=== PATIENT | male | born 1970 | race Caucasian/White ===

== ENCOUNTER 2018-04-08 20:01 | Emergency (ER) | payer MEDICARE ==
[2018-04-08 20:08] VITALS: BP 119/79; PULSE 90; RESP 16; TEMP 98.2; O2SAT 97
--- NOTE | 2018-04-08 20:20 | ED PDOC ---
HPI: Trauma/Fall - HPI Time Seen by Provider: 04/08/18 20:09 Chief Complaint (Nursing): Back Pain Chief Complaint (Provider): Back Pain History Per: Patient History/Exam Limitations: no limitations Injury Occurred (Timing): Days Ago: (x2) Additional Complaint(s): 47 year old male arrives to ED for an evaluation of lower back status post fall yesterday. Patient states he was walking backwards then tripped and landed flat on his back. He reports no pain initially but progressively became worse today after getting up from sitting position. He denies any head injury, numbness, tingling, incontinence or radiation of pain. PMD: none provided - Fall Fall:Prior To Injury: Tripped Past Medical History Reviewed: Historical Data, Nursing Documentation, Vital Signs Vital Signs: Last Vital Signs Temp 98.2 F 04/08/18 20:06 Pulse 90 04/08/18 20:06 Resp 16 04/08/18 20:06 BP 119/79 04/08/18 20:06 Pulse Ox 97 04/08/18 20:38 - Medical History PMH: No Chronic Diseases - Surgical History Surgical History: No Surg Hx - Family History Family History: States: Unknown Family Hx - Home Medications Home Medications: Ambulatory Orders Medication Instructions Recorded Naproxen [Naprosyn] 500 mg PO BID PRN #14 tab 04/08/18 - Allergies Allergies/Adverse Reactions: Allergies Allergy/AdvReac Type Severity Reaction Status Date / Time No Known Allergies Allergy Verified 04/08/18 20:05 Review of Systems ROS Statement: Except As Marked, All Systems Reviewed And Found Negative Genitourinary Male: Negative for: Incontinence Musculoskeletal: Positive for: Back Pain (lower) Neurological: Negative for: Numbness (or tingling), Other (head injury) Physical Exam - Reviewed Nursing Documentation Reviewed: Yes Vital Signs Reviewed: Yes - Physical Exam Appears: Positive for: No Acute Distress Skin: Positive for: Normal Color, Warm, Dry Gastrointestinal/Abdominal: Positive for: Normal Exam, Soft. Negative for: Tenderness Back: Positive for: Muscle Spasm (bilateral). Negative for: L CVA Tenderness, R CVA Tenderness, Vertebral Tenderness - ECG O2 Sat by Pulse Oximetry: 97 (RA) Pulse Ox Interpretation: Normal - Radiology X-Ray: Interpreted by Me (LS spine x-ray) X-Ray Interpretation: No Acute Disease Medical Decision Making Medical Decision Making: Initial Impression: Back pain s/p fall injury Initial Plan: * Toradol 30mg IM * Xray LS spine Scribe Attestation: Documented by Sharmin Pace, acting as a scribe for Rogelio Gutiérrez PA-C. Provider Scribe Attestation: All medical record entries made by the Scribe were at my direction and personally dictated by me. I have reviewed the chart and agree that the record accurately reflects my personal performance of the history, physical exam, medical decision making, and the department course for this patient. I have also personally directed, reviewed, and agree with the discharge instructions and disposition. Disposition - Clinical Impression Clinical Impression: Low back pain - Patient ED Disposition Is Patient to be Admitted: No - Disposition Referrals: [facility] [Outside] Disposition: Routine/Home Disposition Time: 20:37 Condition: IMPROVED Additional Instructions: KLAUDIA DANGELO, thank you for letting us take care of you today. Your provider was Brunilda Kaye MD and you were treated for WC: BACK PAIN. The emergency medical care you received today was directed at your acute symptoms. If you were prescribed any medication, please fill it and take as directed. It may take several days for your symptoms to resolve. Return to the Emergency Department if your symptoms worsen, do not improve, or if you have any other problems. Please contact your doctor or call one of the physicians/clinics you have been referred to that are listed on the Patient Visit Information form that is included in your discharge packet. Bring any paperwork you were given at discharge with you along with any medications you are taking to your follow up visit. Our treatment cannot replace ongoing medical care by a primary care provider outside of the emergency department. Thank you for allowing the [facility] team to be part of your care today. If you had an X-Ray or CT scan: A Radiologist will review the ED reading if any change in treatment is needed we will contact you. If you had a blood, urine, or wound culture: It will take several days for the results, if any change in treatment is needed we will contact you. If you had an STI test: It will take 48 hours for the results. Please call after 1 week if you have not heard back. Prescriptions: Naproxen [Naprosyn] 500 mg PO BID PRN #14 tab PRN Reason: Pain Instructions: Low Back Pain (DC) Forms: [employer] (Cuban), [facility] ED School/Work Excuse Print Language: SPANISH
--- NOTE | 2018-04-09 08:36 | RAD ---
Date of service: 04/08/2018 PROCEDURE: Radiographs of the Lumbar Spine. HISTORY: trauma COMPARISON: No prior. FINDINGS: BONES: Normal alignment. No listhesis. No fracture. There is a limited levoscoliotic deformity with a clockwise rotatory component. DISC SPACES: Mild multilevel lumbar spondylosis is appreciated diffusely. OTHER FINDINGS: None. IMPRESSION: Mild multilevel degenerative disease. Limited levoscoliotic deformity.
== END 2018-04-08 20:56 | disposition home or self-care (01) ==
LOC: H.ER 20:01
DX: M54.5 Low back pain (principal); W01.0XXA Fall on same level from slipping, tripping and stumbling without subsequent striking against object, initial encounter; Y92.89 Other specified places as the place of occurrence of the external cause
CPT/HCPCS: 72100; 96372; 99283; J1885

== ENCOUNTER 2018-05-22 08:24 | Emergency (ER) | payer MEDICARE ==
[2018-05-22 08:33] VITALS: BMI 38.0
[2018-05-22 08:35] VITALS: BP 133/89; TEMP 98.6
--- NOTE | 2018-05-22 08:57 | ED PDOC ---
Lower Extremity Pain/Injury Time Seen by Provider: 05/22/18 08:26 Chief Complaint (Nursing): Lower Extremity Problem/Injury Chief Complaint (Provider): Knee pain History Per: Patient History/Exam Limitations: no limitations Onset/Duration Of Symptoms: Days Current Symptoms Are (Timing): Still Present Additional Complaint(s): Pt is a 47 yo M with hx of bipolar disorder here due to Left knee pain after a fainting episode. He states that on Thursday night he took his Seroquel at 1am then layed down to go to sleep he woke up to go to the bathroom at 3am he thought he tried to stand up from the toilet and felt dizzy he grabbed the shower curtain and fell and fainted he states he landed on his knees. His girlfriend heard him fall and went to check on him she said he was staring at her and he kept repeating "ma" she threw water on his face to wake him up. Patient doesn't recall how long the episode lasted, patient never experienced a fainting episode before. Denies losing his bowels or bladder, denies nausea, vomiting. - Knee Description Of Injury: Fell Currently Unable To: Bear Weight Knee: 1 - L Knee Pain 2 - Shooting pain down left leg - Risk Factors DVT Risk Factors: Pos: None Past Medical History Vital Signs: Last Vital Signs Temp 98.6 F 05/22/18 08:33 Pulse 106 H 05/22/18 08:33 Resp 17 05/22/18 08:33 BP 133/89 05/22/18 08:33 Pulse Ox 97 05/22/18 08:33 - Medical History PMH: Bipolar Disorder - Surgical History Other surgeries: Cyst removed- 2008 - Family History Family History: States: Hypertension Other Family History: Parkinsons, HTN, DM, Myeloma - Social History Current smoker - smoking cessation education provided: No Alcohol: None Drugs: Denies - Home Medications Home Medications: Ambulatory Orders Medication Instructions Recorded Naproxen [Naprosyn] 500 mg PO BID PRN #14 tab 04/08/18 Naproxen [Naprosyn] 500 mg PO Q12H #20 tab 05/22/18 Quetiapine Fumarate [Seroquel] 05/22/18 - Allergies Allergies/Adverse Reactions: Allergies Allergy/AdvReac Type Severity Reaction Status Date / Time No Known Allergies Allergy Verified 04/08/18 20:05 Wells Criteria for PE - Wells Criteria for Pulmonary Embolism Clinical Signs and Symptoms of DVT: No P.E is #1 Diagnosis, or Equally Likely: No Heart Rate >100: Yes Immobilization at least 3 days;Surgery previous 4 weeks: No Previous, objectively diagnosed PE or DVT: No Hemoptysis: No Malignancy w/treatment within 6 months, or palliative: No Total Score: 1.5 Review of Systems Musculoskeletal: Positive for: Leg Pain (Left knee pain) Skin: Positive for: Bruising (right knee, healing cut ) Physical Exam - Physical Exam Appears: Positive for: Well, Non-toxic, No Acute Distress Head Exam: Positive for: ATRAUMATIC, NORMAL INSPECTION, NORMOCEPHALIC Skin: Positive for: Normal Color Eye Exam: Positive for: Normal appearance, EOMI Cardiovascular/Chest: Positive for: Tachycardia Respiratory: Positive for: Normal Breath Sounds Gastrointestinal/Abdominal: Positive for: Normal Exam, Soft Back: Positive for: Normal Inspection Extremity: Positive for: Tenderness Neurologic/Psych: Positive for: Alert, chute boss II-XII, Oriented - Laboratory Results Result Diagrams: 05/22/18 10:10 05/22/18 10:10 - ECG O2 Sat by Pulse Oximetry: 97 - Progress ED Course And Treament: Pt is a 47 yo M presents with L knee pain after a syncopal episode -EKG -CBC -CMP -Left knee Xray Disposition - Clinical Impression Clinical Impression: Contusion, Syncope, Knee pain, Knee injury, Acute knee pain - Patient ED Disposition Is Patient to be Admitted: No - Disposition Referrals: [facility] [Outside] Horacio Liang III, MD [Staff Provider] - Disposition: Routine/Home Disposition Time: 11:13 Condition: FAIR Prescriptions: Naproxen [Naprosyn] 500 mg PO Q12H #20 tab Instructions: Syncope (Fainting), Contusion (DC), Knee Pain (DC) Forms: [employer] (Kiswahili)
[2018-05-22 10:23] LABS: BASO # 0.1 K/uL (0.0-0.2); BASO % 0.6 % (0.0-2.0); EOS # 0.1 K/uL (0.0-0.7); EOS % 1.3 % (0.0-4.0); HEMOGLOBIN 12.6 g/dL (12.0-18.0); LYMPH # 1.8 K/uL (1.0-4.3); LYMPH % 20.4 % (20.0-40.0); MEAN CELL VOLUME 81.7 fl (80.0-94.0); MEAN CORPUSCULAR HEMOGLOBIN 26.9 pg (27.0-31.0); MONO # 0.6 K/uL (0.0-0.8); MONO % 6.6 % (0.0-10.0); NEUT # 6.4 K/uL (1.8-7.0); NEUT % 71.1 % (50.0-75.0); RBC 4.69 Mil/uL (4.40-5.90); RED CELL DISTRIBUTION WIDTH 13.2 % (11.5-14.5); WHITE BLOOD COUNT 8.9 K/uL (4.8-10.8)
--- NOTE | 2018-05-22 10:25 | RAD ---
Date of service: 05/22/2018 PROCEDURE: Left Knee Radiographs. HISTORY: Pain. COMPARISON: None. FINDINGS: BONES: Three views of the left knee were performed for left knee pain. No fracture is seen. No lytic process is noted. No loose body is seen. No focal osteochondral defect is noted. JOINTS: Normal. No osteoarthritis. JOINT EFFUSION: None. OTHER FINDINGS: None. IMPRESSION: Normal radiographs of the left knee.
[2018-05-22 10:33] LABS: ALB/GLOB RATIO 1.2 (1.0-2.1); ALBUMIN 3.7 g/dL (3.5-5.0); ALT/SGPT 38 U/L (21-72); AST/SGOT 24 U/L (17-59); BLOOD UREA NITROGEN 13 mg/dl (9-20); CALCIUM 8.9 mg/dL (8.4-10.2); GFR NON-AFRICAN AMERICAN > 60
[2018-05-22 12:17] VITALS: PULSE 98; RESP 20; O2SAT 100
--- NOTE | 2018-05-23 08:07 | CARD ---
APPROVED REPORT Date of service: 05/22/2018 <Conclusion> Normal sinus rhythm Minimal voltage criteria for LVH, may be normal variant Borderline ECG
== END 2018-05-22 12:17 | disposition home or self-care (01) ==
LOC: H.ER 08:24
DX: R55 Syncope and collapse (principal); S89.92XA Unspecified injury of left lower leg, initial encounter; Z86.59 Personal history of other mental and behavioral disorders; Z82.49 Family history of ischemic heart disease and other diseases of the circulatory system; Z83.3 Family history of diabetes mellitus; W18.39XA Other fall on same level, initial encounter; Y92.002 Bathroom of unspecified non-institutional (private) residence as the place of occurrence of the external cause